=== PATIENT | male | born 1960 | race Caucasian/White ===

== ENCOUNTER 2019-04-07 11:13 | Emergency (ER) | payer BC ==
[~2019-04-07] VITALS: Ht 165.1 cm; Wt 82.6 kg
[2019-04-07 11:30] VITALS: Ht 165.1 cm; Wt 82.6 kg
[2019-04-07 12:00] LABS: CARBON DIOXIDE 24.5 mmol/L (21-32); CHLORIDE SERUM 92 mmol/L (98-107); CREATININE SERUM 1.3 mg/dL (0.7-1.3); GFR1 > 60 mL/min; GLUCOSE SERUM 99 mg/dL (74-106); POTASSIUM SERUM 3.9 mmol/L (3.5-5.1); SODIUM SERUM 127 mmol/L (136-145)
[2019-04-07 12:05] LABS: ALKALINE PHOSPHATASE 75 U/L (46-116); ALT/SGPT 136 U/L (16-63); AST/SGOT 83 U/L (15-37); TOTAL PROTEIN, SERUM 7.2 g/dL (6.4-8.2)
[2019-04-07 12:06] LABS: ALBUMIN 2.9 g/dL (3.4-5.0); BASOPHIL % 0.2 % (0-2); PLATELET COUNT 150 x10^3mcL (130-400); RED CELL DISTRIBUTION WIDTH 13.8 % (11.5-14.5)
[2019-04-07 14:14] LABS: UA SPECIFIC GRAVITY 1.025 (1.005-1.035); microscopic required? YES; urine erythrocyte 2+ (NEGATIVE)
[2019-04-07 16:28] VITALS: BP 112/69
== END 2019-04-07 16:28 | disposition home or self-care (01) ==
LOC: ED 11:13
PROVIDERS: Emergency Medicine
DX: K52.9 Noninfective gastroenteritis and colitis, unspecified (principal); R94.5 Abnormal results of liver function studies; E87.1 Hypo-osmolality and hyponatremia; Z88.0 Allergy status to penicillin
CPT/HCPCS: J2270; J2405; J7030; Q0092